=== PATIENT | female | born 1985 | race Native Hawaiian/Other Pacific Islander ===

== ENCOUNTER 2017-02-10 04:44 | Emergency (ER) | payer MEDICAID, SELFPAY ==
[2017-02-10 07:43] VITALS: BMI 28.9
--- NOTE | 2017-02-10 09:28 | OBHP ---
Datetime: 02/10/2017 05:32 IP Adm Impression: Term, intrauterine IP Admit Plan: Observation/Evaluation; Discharge home Admit Comment, IP Provider: CC: "I had fluid coming out of me" HPI: 31 YO F with no sig PMH presents to [facility] with "fluid coming out." Per patient she had no ticed fluid since earlier tonight, initially she noticed some drops then noticed teaspoonful in the l ast two times she has gone to the bathroom. good movement, no blood per vagina. GBS -, EDC is . 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 Medications: PNV Allergies: NKDA PE Vitals: stable Gen: NAD Cardio: s1s2 Resp: vesicular breathing b/l Extre: no edema noted cervical: gravid monitor; catagory I with FHR 130 Assessment/Plan: 31 YO F with no sig PMH presents to [facility] is currently being observed. Pateint is currently co mfortable, with good movement, no bleeding. Nitrazine test is negative. Liliya May, PGY-I OB Hospitalist Addendum: Pt seen and examined by me. 31 yo at 38+1 wks c/o LOF, painful c xns, denies VB, reports FM. Spec: white watery d/c, nitrazine neg, ferning neg. VE at 8:40am unchan ged. NST reactive. Pt given PO hydration and disharged home w/ labor precautions. (ES) Pelvic Type - PN: Adequate Extremities - PN: Normal Abdomen - PN: Normal Back - PN: Not Done Breast - PN: Not Done Lungs - PN: Normal Heart - PN: Normal Thyroid - PN: Normal Neurologic - PN: Normal HEENT - PN: Normal General - PN: Normal FHR - Baseline A Provider: 130 Pool Provider: Negative Nitrazine Provider: Negative IP Hx Assessment: The History has been Reviewed and is Current EGA AdmitDate IP: 38.1 Vital Signs Provider: Reviewed IP Chief Complaint: Suspected ruptured membranes NICHD Variability Prov Fetus A: Moderate 6-25bpm NICHD Accel Fetus A IP Provider: 15X15 FHR Category Provider Fetus A: Category I Dilatation, Provider: 2 Effacement, Provider: 50 Station, Provider: -2 Genitourinary Exam: Normal DTRs - PN: Normal
[2017-02-10 13:44] VITALS: BP 118/74; PULSE 88; RESP 18; TEMP 98.1
--- NOTE | 2017-02-11 11:46 | OBDCSUM ---
Datetime: 02/10/2017 09:20 Discharge Diagnosis, Provider: False Labor - Undelivered
== END 2017-02-10 09:25 | disposition home or self-care (01) ==
LOC: H.EROB2 04:44
DX: O26.893 Other specified pregnancy related conditions, third trimester (principal); Z3A.38 38 weeks gestation of pregnancy

== ENCOUNTER 2017-02-21 02:39 | Inpatient (IN) | payer MEDICAID, SELFPAY ==
[2017-02-21] MEDS ORDERED: Lidocaine 1% Inj (20ml) ONE (03:07)
[2017-02-21 03:14] VITALS: BMI 28.7
[2017-02-21] MEDS ORDERED: Lactated Ringer's 1,000 ML IV SCH (03:14)
[2017-02-21] MEDS ORDERED: Oxytocin 30 units/LR 500ML 30 U/500 ML BAG IV SCH (03:15)
[2017-02-21 03:42] LABS: BASO # 0.1 K/uL (0.0-0.2); BASO % 0.9 % (0.0-2.0); EOS # 0.2 K/uL (0.0-0.7); EOS % 2.1 % (0.0-4.0); HEMOGLOBIN 12.4 g/dL (12.0-16.0); LYMPH # 3.8 K/uL (1.0-4.3); LYMPH % 33.2 % (20.0-40.0); MEAN CELL VOLUME 94.3 fl (81.0-99.0); MEAN CORPUSCULAR HEMOGLOBIN 32.6 pg (27.0-31.0); MEAN CORPUSCULAR HGB CONC 34.6 g/dL (33.0-37.0); MEAN PLATELET VOLUME 8.2 fl (7.2-11.7); MONO % 8.4 % (0.0-10.0); NEUT # 6.4 K/uL (1.8-7.0); NEUT % 55.4 % (50.0-75.0); NRBC % 0.1 % (0.0-0.0); RBC 3.81 Mil/uL (3.80-5.20); RED CELL DISTRIBUTION WIDTH 14.4 % (11.5-14.5); WHITE BLOOD COUNT 11.5 K/uL (4.8-10.8)
[2017-02-21] MEDS ORDERED: Oxycodone/Acetaminophen 5/325 mg Tab PO PRN (04:28)
--- NOTE | 2017-02-21 05:28 | OBDS ---
DELIVERY PERSONNEL Delivery Doctor: Gigi Whipple MD Supervisor [employer]: ECroweRN/JCarlockRN/MLongoriaRN/ALippinocttRN/RPenenueva Resident: KRISTIN Cage MATERNAL INFORMATION Delivery Anesthesia: None Medications in Delivery: Pitocin 20 units in 1000 mls, Lidocaine Estimated Blood Loss (ml): 400 Placenta Cultured: No Maternal Complications: None Provider Comments: AP Dia.5wks; labor; moder meconium PP Diag: same Procedure: loose nuchal nuchal cord reduced at perineum; ; placental delivered spontaneoulsy _ intact. repair of laceration ob: [place] resident jpatel anesth: 1%local lidocaine findings: loose nuchal cord; viable female; 3330g; 9_9 ebl: 400cc no complic/path neon remained in br with pt LABOR SUMMARY EDC: 02/23/2017 00:00 No. Babies in Womb: 1 Attempted: No Labor Anesthesia: None LABOR INFORMATION Reason for Induction: Not Applicable Complete Dilatation: 02/21/2017 03:34 Oxytocin: N/A Group B Beta Strep: Negative Antibiotics # of Doses: N/A Antibiotics Time of Last Dose: N/A Steroids Given: None Reason Steroids Not Administered: Not Applicable MEMBRANES Membranes Rupture Method: Spontaneous Rupture of Membranes: 02/21/2017 03:35 Length of Rupture (hrs): 0.05 Amniotic Fluid Color: Clear Amniotic Fluid Amount: Moderate Amniotic Fluid Odor: Normal STAGES OF LABOR Stage 2 hrs: 0 Stage 2 min: 4 Stage 3 hrs: 0 Stage 3 min: 5 VAGINAL DELIVERY Episiotomy: None Laceration Extension: Second Degree Laceration Type: Perineal; Vaginal Laceration Repair Note: Repair of 2nd degree perineal laceration with 1%local lidocaine and 3-0 poly sorb and 3-0 vicryl rapid. Initial Vag Sponge Count: 15 Final Vag Sponge Count: 15 Initial Vag Sharps Count: 4 Final Vag Sharps Count: 4 Sponge Count Correct: Yes Sharps Count Correct: Yes Count Comment: MD aware of count BABY A INFORMATION Delivery Date/Time: 02/21/2017 03:38 Method of Delivery: Vaginal Born in Route : No : N/A Forceps: N/A Vacuum Extraction: N/A Shoulder Dystocia : No SHOULDER DYSTOCIA BABY A Delivery Date/Time: 02/21/2017 03:38 PRESENTATION/POSITION BABY A Presentation: Cephalic Cephalic Presentation: Vertex Breech Presentation: N/A PLACENTA INFORMATION BABY A Placenta Delivery Time : 02/21/2017 03:43 Placenta Method of Delivery: Spontaneous Placenta Status: Delivered SCORES BABY A Heart Rate 1 min: >100 bpm Resp Effort 1 min: Good Cry Reflex Irritability 1 min: Cough or Sneeze or Pulls Away Muscle Tone 1 min: Active Motion Color 1 min: Body [place], Extremities Blue Resuscitation Effort 1 min: N/A SCORE 1 MIN: 9 Heart Rate 5 min: >100 bpm Resp Effort 5 min: Good Cry Reflex Irritability 5 min: Cough or Sneeze or Pulls Away Muscle Tone 5 min: Active Motion Color 5 min: Body [place], Extremities Blue Resuscitation Effort 5 min: N/A SCORE 5 MIN: 9 INFANT INFORMATION BABY A Gestational Age at Delivery: 39.5 Gestational Status: Term Outcome : Liveborn Condition : Stable Sex: Female IDENTIFICATION/MEDS BABY A ID Band Number: [id number] ID Band Location: Left Leg; Left Arm WEIGHT/LENGTH BABY A Infant Birthweight (gms): 3330 Weight (lb): 7 Infant Weight (oz): 5 CORD INFORMATION BABY A No. Cord Vessels: 3 Nuchal Cord : Around Neck x1, Loose Nuchal Cord Other: N/A True Knot: N/A Cord pH Baby Arterial: N/A Infant Cord pH Baby Venous: N/A Cord Blood Taken: Yes Banking/Donate Info: N/A Suction: Mouth; Nose
--- NOTE | 2017-02-21 05:33 | OBADHP ---
Datetime: 02/21/2017 04:53 Admit Comment, IP Provider: 31 YO F , 39.5 wks GA and DELROY 02/23 by her last LMP and 02/21 by her f irst tremester U/S, comes to the ED c/o CTX. good movement, no blood per vagina. 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 Medications: PNV Allergies: NKDA PE Vitals: stable Gen: NAD Cardio: s1s2 Resp: vesicular breathing b/l Extre: no edema noted cervical: gravid monitor; catagory I with FHR 139 kai 8cm, 90% and +1 Assessment/Plan: 31 YO F , 39.5 wks GA and DELROY 02/23 by her last LMP in Active labor -admit to L_D -reassuring FHT -monitor VS -case discussed with Dr. Terry --Papito Cage, PGY-1 Patient progressed to 10cm dil within 15 mins and labor protocol initiated. -discussed with Dr. Terry --Papito Cage, PGY-1 OBH ADDENDUM: pt seen _ examined by me. agree with above assessment and plan. Pelvic Type - PN: Adequate Extremities - PN: Normal Abdomen - PN: Normal Back - PN: Normal Lungs - PN: Normal Heart - PN: Normal Thyroid - PN: Normal Neurologic - PN: Normal HEENT - PN: Normal General - PN: Normal FHR - Baseline A Provider: 139 Vital Signs Provider: Reviewed IP Chief Complaint: Uterine contractions NICHD Variability Prov Fetus A: Moderate 6-25bpm NICHD Accel Fetus A IP Provider: [id number] FHR Category Provider Fetus A: Category I NICHD Decel Fetus A IP Provider: None Dilatation, Provider: 8 Effacement, Provider: 90 Station, Provider: 1 Genitourinary Exam: Normal DTRs - PN: Normal EGA AdmitDate IP: 39.5 IP Adm Impression: Term, intrauterine IP Admit Plan: Admit to unit Datetime: 02/10/2017 05:32 Breast - PN: Not Done Pool Provider: Negative Nitrazine Provider: Negative IP Hx Assessment: The History has been Reviewed and is Current
[2017-02-21 07:40] LABS: HEMOGLOBIN 11.1 g/dL (12.0-16.0); MEAN CELL VOLUME 94.3 fl (81.0-99.0); MEAN CORPUSCULAR HEMOGLOBIN 31.8 pg (27.0-31.0); MEAN CORPUSCULAR HGB CONC 33.7 g/dL (33.0-37.0); RBC 3.49 Mil/uL (3.80-5.20); RED CELL DISTRIBUTION WIDTH 14.6 % (11.5-14.5); WHITE BLOOD COUNT 18.2 K/uL (4.8-10.8)
[2017-02-21] MEDS ORDERED: Benzocaine/Menthol SPRAY TOP PRN (17:28)
--- NOTE | 2017-02-23 09:21 | OBPPN ---
Datetime: 02/23/2017 03:05 PP Pain Prov: Within normal limits PP Nausea Prov: Denies PP Flatus Prov: Yes PP BM Prov: Yes PP Breasts Prov: Normal PP Heart Prov: Normal PP Lungs Prov: Normal PP Abdomen/Uterus Prov: Normal PP Lochia Prov: Normal PP Vulva/Perineum Prov: Normal PP CVA Tenderness Prov: Normal PP Extremities Prov: Normal PP Progress Prov: Normal PP Impression Prov: Normal progression PP Plan Prov: Discharge IP PP Procedures: None Vital Signs Provider PP: Reviewed; Within Normal Limits Datetime: 02/22/2017 07:30 PP C/S Incision Prov: Normal PP Progress Note Prov: S: 31 yo s/p NVD on 02/21/17 at 3:38am. Pt. is seen and examined at [facility] this AM. No overnight events. Pt reports occasional abdominal pain, but well controlled with pain meds. Pt is ambulating without any difficulties. Breast feeding baby. Tolerating PO diet. Lochia is s imilar to light menses in volume. Voiding freely, no Bowel movement, but passing gas per rectum. Neel es fever/chills, diarrhea, nausea/vomiting, chest pain, dyspnea, and dizziness. Of note, O: VS: stable GEN: NAD Cardio: s1s2, no M/G/R Resp: clear breath sounds b/l Abdomen: BS+, NT, Uterus is firm and at the level of the umbilicus. EXT: No edema, calves nontender NEURO/PSYCHI: AAOx3, no grossly focal deficit, preserved affect and mood. Assessment/Plan: 31 yo s/p NVD on 02/21/17 at 3:38am. Pt remains afebrile, tolerating pain wit h medication, tolerating PO intake, doing well on PPD#1. OOB with caution SCDs for DVT prophylaxis, pt ambulating Percocet 5/325mg, and Ibuprofen 600mg for pain. Colace 100mg PO BID for constipation Encourage and ambulating Stable CBC post-delivery: 11.1/33.7 --- Papito Cage, PGY-1 obh addendum: agree with assessment and plan.
[2017-02-23 18:56] VITALS: BP 104/79; PULSE 98; RESP 20; TEMP 97.9; O2SAT 99
== END 2017-02-23 14:45 | disposition home or self-care (01) | DRG 373 ==
LOC: H.EROB2 02:39 → H.L&D 03:14 → H.OB/GYN 06:15
PROVIDERS: ADMIT Obstetrics & Gynecology; ATTEND Obstetrics & Gynecology
PROC: 10E0XZZ Delivery of Products of Conception, External Approach (ICD-10-PCS; principal; 2017-02-21)
PROC: 0KQM0ZZ Repair Perineum Muscle, Open Approach (ICD-10-PCS; 2017-02-21)
PROC: 4A1HXCZ Monitoring of Products of Conception, Cardiac Rate, External Approach (ICD-10-PCS; 2017-02-21)
DX: O69.81X0 Labor and delivery complicated by cord around neck, without compression, not applicable or unspecified (principal); K59.00 Constipation, unspecified; Z37.0 Single live birth; O77.0 Labor and delivery complicated by meconium in amniotic fluid; O70.1 Second degree perineal laceration during delivery; Z3A.39 39 weeks gestation of pregnancy; O62.3 Precipitate labor